=== PATIENT | male | born 1975 | race Caucasian/White ===

== ENCOUNTER 2023-06-10 09:08 | Outpatient (AMB) | payer BC, SELFPAY ==
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
[2023-06-10 09:19] VITALS: BMI 27.8
== END 2023-06-10 10:58 | disposition home or self-care (01) ==
PROVIDERS: Visit Provider Orthopaedic Surgery
DX: S43.432A Superior glenoid labrum lesion of left shoulder, initial encounter (principal)
CPT/HCPCS: 99204

== ENCOUNTER 2023-06-10 10:22 | Outpatient (REF) | payer BC, SELFPAY ==
--- NOTE | ~2023-06-10 | XR_ITS ---
EXAMINATION: XR SHOULDER, LEFT CLINICAL INFORMATION: Reason for Exam M25.519 - Pain in unspecified shoulder COMPARISON: None TECHNIQUE: Three views of the shoulder. FINDINGS: No acute fracture or dislocation. Joint spaces are maintained without significant degenerative change. Soft tissues are unremarkable. XR/XR shoulder LT min 2V IMPRESSION: * No acute osseous abnormality.
== END 2023-06-10 10:23 | disposition home or self-care (01) ==
LOC: HO.HOSX 10:22
PROVIDERS: Visit Provider Orthopaedic Surgery
DX: S43.432A Superior glenoid labrum lesion of left shoulder, initial encounter (principal)
CPT/HCPCS: 73030

== ENCOUNTER 2023-07-07 12:19 | Day surgery (SDC) | payer BC, SELFPAY ==
[2023-07-02 12:52] VITALS: BMI 27.8
[2023-07-02 13:10] VITALS: BMI 27.8
--- NOTE | 2023-07-06 08:57 | HO.ANESPROP2 ---
Documented by User: Kina Larios NP 07/06/23 08:58 HPI - Anesthesia Eval Consult details Narrative: 48yo M for Left Shoulder Arthroscopy flap tear [facility] Active Problems Active Problems: All Active Problems (Updated 07/02/23 @ 13:10 by Ariella Dumas RN) Labral tear of shoulder (Acute) Past Medical History Medical History (Updated 07/02/23 @ 13:10 by Ariella Dumas RN) Hx of heartburn Sleep apnea Psoriasis Surgical History Surgical History (Updated 07/02/23 @ 13:08 by Ariella Dumas RN) Hx of inguinal hernia repair Hx of umbilical hernia repair History of hernia repair Social History Social History (Updated 07/02/23 @ 13:13 by Ariella Dumas RN) Household Members: Spouse Housing: House Are you a primary primary care nurse practitioner to a significant other at home: No Do you presently have visiting nurse or other home services: No Patient Tobacco Use Status: Never used Tobacco Current occupational status: employed Current occupation: [employer] Allergies Allergy/AdvReac Type Severity Reaction Status Date / Time No Known Allergies Allergy Verified 07/02/23 13:13 Home Medications Medication Instructions Recorded Confirmed Last Taken Type albuterol sulfate 90 mcg/actuation 2 puff inhalation Q4-6H PRN 07/02/23 07/02/23 Unknown History aerosol inhaler Shortness Of Breath Or Wheezing deucravacitinib 6 mg tablet 6 mg PO DAILY 07/02/23 07/02/23 Unknown History (Sotyktu) Exam Exam Date and Time: July 06, 2023 0857 Height,Weight and Vital Signs: Height 5 ft 10 in Weight 87.997 kg Assessment and Plan Assessment Anesthesia Assessment: Chart Reviewed Documented by User: Hill Hou MD 07/07/23 17:57 PMFSH Past Medical History Medical History (Updated 07/02/23 @ 13:10 by Ariella Dumas RN) Hx of heartburn Sleep apnea Psoriasis Functional capacity: independent ambulation Family History Family history of problems with anesthesia: No Surgical History Surgical History (Updated 07/02/23 @ 13:08 by Ariella Dumas RN) Hx of inguinal hernia repair Hx of umbilical hernia repair History of hernia repair History of Problems with Anesthesia: No Social History Social History (Updated 07/02/23 @ 13:13 by Ariella Dumas RN) Household Members: Spouse Housing: House Are you a primary primary care nurse practitioner to a significant other at home: No Do you presently have visiting nurse or other home services: No Patient Tobacco Use Status: Never used Tobacco Current occupational status: employed 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 Meds Allergies Allergy/AdvReac Type Severity Reaction Status Date / Time No Known Allergies Allergy Verified 07/02/23 13:13 Home Medications Medication Instructions Recorded Confirmed Last Taken Type albuterol sulfate 90 mcg/actuation 2 puff inhalation Q4-6H PRN 07/02/23 07/02/23 Unknown History aerosol inhaler Shortness Of Breath Or Wheezing deucravacitinib 6 mg tablet 6 mg PO DAILY 07/02/23 07/02/23 Unknown History (Sotyktu) Exam Airway Mallampati Class: IV TM Dist: <=3cm Neck ROM: Full Loose/Missing/Broken Teeth: Yes Assessment and Plan Assessment Anesthesia Assessment: Anesthesia Plan Discussed Final Anesthetic Review Family History of Problems with Anesthesia: No History of Problems with Anesthesia: No NPO: Yes ASA Class: II Final Preanesthetic Review: Meds/Allgs Chart Reviewed, Consent Obtained/Reviewed and Anes Risks/Benef Reviewed Patient Risk: Intermediate Procedure Risk: Intermediate Anesthetic Plan Anesthetic Plan: GA, Regional Block and Agree w/ Assess. and Plan Disposition: Standard PACU
[2023-07-07 12:34] VITALS: BP 128/77; PULSE 73; RESP 18; TEMP 36.6; O2SAT 96
[2023-07-07 12:38] VITALS: BMI 28.1
[2023-07-07] MEDS: Lactated Ringers 1,000 ML 100 ML IVCONT (12:50)
[2023-07-07 14:31] VITALS: BP 116/75; PULSE 77; RESP 24; TEMP 36.3; O2SAT 96
[2023-07-07 14:36] VITALS: BP 112/71; PULSE 85; RESP 18; O2SAT 98
[2023-07-07 14:41] VITALS: BP 112/71; PULSE 84; RESP 20; O2SAT 97
[2023-07-07 14:46] VITALS: BP 115/73; PULSE 75; RESP 20; O2SAT 93
[2023-07-07 14:59] VITALS: BP 116/83; PULSE 81; RESP 20; TEMP 36.3; O2SAT 93
--- NOTE | 2023-07-07 15:16 | P.BOP_ITS ---
Brief Operative Note Date of Service: 07/07/23 Pre-op diagnosis: Left shoulder SLAP tear Post-op diagnosis: same Procedure: Debridement left SLAP tear Implants: none Surgeon: Wesly Weaver MD Anesthesia: GETA and regional Was an Online Project Manager used for this Procedure?: Yes Online Project Manager: Luz Maciel Estimated blood loss (mL): 5 IV fluids (mL): 500 Pathology: none sent Condition: stable Disposition: PACU
--- NOTE | 2023-07-19 11:09 | P.OP_ITS ---
Operative Note Operative Note Date of Service: 07/07/23 Narrative: Date of Service: 07/07/23 Pre-op diagnosis: Left shoulder SLAP tear Post-op diagnosis: same Procedure: Debridement left SLAP tear Implants: none Surgeon: Wesly Weaver MD Anesthesia: GETA and regional Was an Geology Technician used for this Procedure?: Yes Geology Technician: Luz Maciel Estimated blood loss (mL): 5 IV fluids (mL): 500 Pathology: none sent Condition: stable Disposition: PACU Procedure in detail: Patient was brought to the operating room and placed the the beach chair position. All bony prominences were well padded and the limb was prepped and draped in standard sterile fashion. A time out was called to identify proper site, proper procedure and proper surgeon. IV antibiotics per weight were administered. I began by making a posterolateral stab incision with a 15 blade. A blunt trochar was placed into the glenohumeral joint and I insufflated the joint with saline and a 30 degree arthroscope was placed. I established an outside- in anterior portal just distal to the biceps tendon. I then began my inspection of the glenohumeral joint. There was a small SLAP tear ( Type 1). The labral attachment was intact. There were no cartilage changes of the glenoid or humeral head. There was no e/o undersurface RTC tear. The subcapularis was intact. I debrided the loose cartilage of the glenoid/biceps anchor and ablated some anterior interval synovitis. There was no need for biceps tenodesis or labral repair I then removed the trochar and entered the subacromial space. A direct lateral portal was then established and I performed a bursectomy. The cuff was then examined. There was no bursitis and the cuff was pristine. Once I was satisfied with the repair final images were captured and I removed all instrumentation. Portals were closed with nylon. Patient was placed in an abduction sling, e xtubated and brought to the recovery room in stable condition. There were no known complications.
== END 2023-07-07 15:56 | disposition home or self-care (01) ==
LOC: HO.SSS 12:20
PROVIDERS: PCP Internal Medicine Geriatric Medicine; Visit Provider Orthopaedic Surgery
PROC: (CPT 29805; principal; 2023-07-07 15:10)
DX: S43.432A Superior glenoid labrum lesion of left shoulder, initial encounter (principal); V89.2XXA Person injured in unspecified motor-vehicle accident, traffic, initial encounter; Y93.89 Activity, other specified; Y92.9 Unspecified place or not applicable; Y99.8 Other external cause status; G47.33 Obstructive sleep apnea (adult) (pediatric)
CPT/HCPCS: 29822; J0131; J0690; J2250; J2371; J2405

== ENCOUNTER → 2023-07-07 12:19 | Outpatient (BNV) | payer BC, SELFPAY | PROVIDERS: PCP Internal Medicine Geriatric Medicine; Visit Provider Orthopaedic Surgery | DX: S43.432A Superior glenoid labrum lesion of left shoulder, initial encounter (principal) | CPT/HCPCS: 29822 ==

== ENCOUNTER 2023-07-12 13:02 | Outpatient (AMB) | payer BC, SELFPAY ==
--- NOTE | 2023-07-12 13:13 | A.OFFVIS_ITS ---
Intake Vital Signs 07/12/23 13:15 Height 5 ft 10 in Weight 197 lb BMI 28.3 Intake Visit Reasons: PO LT SHLD bic.ten. 07/07/23NE Intake Note: Trung 48 yr old male presents today for his P/O visit for his left shoulder bicep tendon repair from 07/07/23. States he has soreness, states his sling causes more discomfort and uses it as needed only. Allergies No Known Allergies Allergy (Verified 07/12/23 13:14) HPI PO LT SHLD bic.ten. 07/07/23NE HPI Details 48-year-old male who returns to the [facility] today for post-op left shoulder bic ten, 07/07/[address] Weaver. He states he has soreness and discomfort in his shoulder which is aggravated with the use of his sling and is wearing it only as needed. He is doing well otherwise and has no concerns today. 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 No swelling or ecchymosis. NVI. Assessment & Plan Assessment & Plan (1) Labral tear of shoulder: Code(s): S43.439A - Superior glenoid labrum lesion of unspecified shoulder, initial encounter Qualifiers: Encounter type: initial encounter Laterality: left Qualified Code(s): S43.432A - Superior glenoid labrum lesion of left shoulder, initial encounter (2) History of arthroscopy of left shoulder: Code(s): Z98.890 - Other specified postprocedural states Plan Sutures removed today, steri strips applied. He will begin physical therapy on July 15. He will increase activity as tolerated using caution with any type of lifting and he will remain out of work until his next follow-up with Dr. Weaver in 5 weeks, sooner if needed. Patient Instructions: Scribed for Hallie Harmon PA-C, by Puneet Ku emergency medical services coordinator, on 07/12/2023 at 1:15 PM EST. I, Hallie Harmon PA-C, have personally reviewed and agree with the information entered by the scribe. Coding Level of Care Code Global (74289) Diagnoses Tear of left glenoid labrum, initial encounter S43.432A Encounter type: initial encounter Laterality: left History of arthroscopy of left shoulder Z98.890
[2023-07-12 13:15] VITALS: BMI 28.3
== END 2023-07-12 13:42 | disposition home or self-care (01) ==
PROVIDERS: PCP Internal Medicine; Visit Provider Physician Assistant
DX: S43.432A Superior glenoid labrum lesion of left shoulder, initial encounter (principal); Z98.890 Other specified postprocedural states
CPT/HCPCS: 99024

== ENCOUNTER → 2023-07-12 13:02 | Outpatient (BNVA) | payer BC, SELFPAY | PROVIDERS: PCP Internal Medicine; Visit Provider Physician Assistant ==

== ENCOUNTER 2023-08-16 09:30 | Outpatient (AMB) | payer BC, SELFPAY ==
--- NOTE | 2023-08-16 09:41 | A.OFFVIS_ITS ---
Intake Vital Signs 08/16/23 10:01 Height 5 ft 10 in Weight 197 lb BMI 28.3 Intake Visit Reasons: PO-LT SHLD bic.ten. 07/07/23NE Intake Note: Trung is a 48 year old right hand dominant male who presents today for a post operative appointment s/p Left Shoulder Bicep Tendon 07/07/23. He remains out of work at this time. Patient reports that he is doing well, still having some pain. He is working with physical therapy. Allergies No Known Allergies Allergy (Verified 08/16/23 10:02) HPI PO-LT SHLD bic.ten. 07/07/23NE HPI Details Trung is a 48 year old man ~5 weeks S/P left shoulder debridement, without tendon repair. He says he is doing well overall, and has been attending PT. He continues to wear his sling. He has some pain with motion, and says his pain is worse after some PT sessions. He has been out of work since his surgery and wants to know when he can return. 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 [facility] Medical History (Updated 07/12/23 @ 13:54 by Hallie Harmon PA-C) Hx of heartburn Sleep apnea Psoriasis Surgical History (Updated 07/08/23 @ 09:57 by Luz Maciel PA-C) Hx of inguinal hernia repair Hx of umbilical hernia repair History of hernia repair Social History Household Members: Spouse Housing: House Are you a primary home care manager to a significant other at home: No Do you presently have visiting nurse or other home services: No Patient Tobacco Use Status: Never used Tobacco Use of substances other than those prescribed or required for medical reasons: No Current occupational status: employed 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 Review of Systems Const All systems reviewed & are unremarkable except as noted in HPI and below Physical Exam Vital Signs: BMI result Body Mass Index 28.3 Const General: no acute distress, alert and awake Orientation/consciousness: patient oriented x3 HEENT Head: Yes normocephalic and Yes atraumatic Eyes EOM: EOMs intact bilaterally Resp Effort & Inspection: normal respiratory effort and able to speak in complete sentences Cardio Jugular venous distension: no JVD Skin General skin exam: turgor normal Rashes: no rashes Neuro General: patient oriented x3 Extrem Other: Left Shoulder: Portals C/D/I 30 degrees ER 90 degreed AB splinting with left shoulder girdle Psych Appearance: grossly normal Affect: normal affect Attitude: cooperative Assessment & Plan Assessment & Plan (1) History of arthroscopy of left shoulder: Code(s): Z98.890 - Other specified postprocedural states Plan: This is a 48 year old man S/P left shoulder debridement, DOS: 07/07/23. He is doing well overall, and has been attending PT & wearing his sling. He will limit or avoid any overhead or heavy lifting activities at this time, and focus on per i-scapular strengthening exercises. He will continue with PT and discontinue his sling. He was given a note for work saying he will remain out of work until at least his next appointment. He will follow up in 6 weeks. (2) Labral tear of shoulder: Code(s): S43.439A - Superior glenoid labrum lesion of unspecified shoulder, initial encounter Qualifiers: Encounter type: initial encounter Laterality: left Qualified Code(s): S43.432A - Superior glenoid labrum lesion of left shoulder, initial encounter Plan Scribed for Wesly Weaver MD by Jeffery Perez, medical device sales representative, on 08/16/23 at 10:15 AM, EST. Coding Level of Care Code Global (62977) Diagnoses History of arthroscopy of left shoulder Z98.890 Tear of left glenoid labrum, initial encounter S43.432A Encounter type: initial encounter Laterality: left
[2023-08-16 10:01] VITALS: BMI 28.3
== END 2023-08-16 10:17 | disposition home or self-care (01) ==
PROVIDERS: PCP Internal Medicine; Visit Provider Orthopaedic Surgery
DX: Z98.890 Other specified postprocedural states (principal); S43.432A Superior glenoid labrum lesion of left shoulder, initial encounter
CPT/HCPCS: 99024

== ENCOUNTER → 2023-08-16 09:30 | Outpatient (BNVA) | payer BC, SELFPAY | PROVIDERS: PCP Internal Medicine; Visit Provider Orthopaedic Surgery ==

== ENCOUNTER 2023-09-21 08:00 | Outpatient (RCR) | payer BC, SELFPAY ==
--- NOTE | 2023-07-30 14:31 | MHC.PT.EP ---
[facility] [place] Office [place] Office [place] Office [address] Randall Begum [address] [phone] F: [phone] F: [phone] F: [phone] F: [phone] Physical Therapy Plan of Care Date of Evaluation: 07/30/23 Date of Surgery: 07/07/23 Diagnosis: S/P SLAP REPAIR 07/07/23 (KP) Assessment: PRESENTS P/O WEEK 3 FOR ORTHOPEDIC FOLLOW UP AND PT EVALUATION. UPON EXAM HE DEMONSTRATES THE EXPECTED IMPAIRMENTS OF DECREASED ROM, DECREASED STRENGTH, ALTERED POSTURE AND POSITIONING, INCREASED UPPER TRAP GUARDING, AND INCREASED PAIN AND EDEMA. FUNCTIONAL LIMITATIONS INCLUDE DECREASED ABILITY TO PERFORM HOMEMAKING AND SELF-CARE TASKS, DECREASED ABILITY TO PERFORM PUSHING, PULLING, LIFTING AND REACHING. INABILITY TO DRIVE AND PERFORM WORK TASKS, DECREASED PARTICIPATION IN COMMUNITY AND RECREATIONAL ACTIVITIES AND DISRUPTED SLEEP. THE PT IS A GOOD CANDIDATE FOR SKILLED PT DUE TO AGE, POTENTIAL REMEDIATION OF IMPAIRMENTS, TYPICAL DISEASE/CONDITION PROGRESSION AND PROGNOSIS, COMORBIDITIES, AND MOTIVATION. PT WOULD BENEFIT FROM TAILORED PROGRAM OF THERAPEUTIC ACTIVITIES, FUNCTIONAL TRAINING, POSTURAL EDUCATION, NEUROMUSCULAR RE-EDUCATION, AND MODALITIES NEEDED. Frequency and Duration: The patient will be seen 2 X WEEK FOR 4 WEEKS Short Term Goals: INITIATE HEP AND PROMOTE SELF MANAGEMENT OF SYMPTOMS [employer] Analyst Goals: FULL, PAIN FREE ROM FULL UE STRENGTH, PAIN FREE TO PERFORM COMPUTER AND WORK TASKS WITHOUT RESTRICTION AND PAIN NO GREATER THAN 2/[address] OBJECT AT MINIMUM OF 5# INTO CABINET AT SHOULDER HEIGHT Treatment Plan: Modalities to reduce pain, spasms and effusion. Manual therapy to restore motion and function. Therapeutic exercise to improve strength and flexibility. Neuromuscular re-education for posture and balance. Therapeutic activities to return to functional activities of daily living. Electronically signed by: SIVA LINTON PT DPT Please sign and return to therapist. Thank you for your referral.
== END 2023-11-08 09:12 | disposition home or self-care (01) ==
LOC: HO.PT 08:00
PROVIDERS: Absent Provider Physician Assistant; PCP Internal Medicine; Visit Provider Physician Assistant
DX: Z98.890 Other specified postprocedural states (principal)
CPT/HCPCS: 97110; 97140; 97161

== ENCOUNTER 2023-09-27 09:00 | Outpatient (AMB) | payer BC, SELFPAY ==
--- NOTE | 2023-09-27 09:03 | MHC.OFFVIS ---
Intake Vital Signs 09/27/23 09:04 Height 5 ft 10 in Weight 197 lb BMI 28.3 Intake Visit Reasons: PO-LT SHLD bic.ten. 07/07/23NE Intake Note: Trung is a 48 year old right hand dominant male who presents today for a post operative appointment s/p Left Shoulder Bicep Tendon 07/07/23. He remains out of work at this time. Patient reports that he is having continued, possibly worsening pain, pain increases with reaching and he has some clicking with ROM Allergies No Known Allergies Allergy (Verified 09/27/23 09:08) HPI PO-LT SHLD bic.ten. 07/07/23NE HPI Details Trung is a 48 year old man ~3 months S/P left shoulder debridement, without tendon repair. He reports having pain in his shoulder, which he feels may be getting worse since his last appointment. His pain is felt with use of his arm, and increases with reaching motions, as well as at night. He feels a clicking sensation in his shoulder with motion, and says at time the pain radiates up into his neck. He also says he has some occasional numbness in his fingertips as well, which is new for him. He has been attending PT. He has been out of work since his surgery. 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 Review of Systems Const All systems reviewed & are unremarkable except as noted in HPI and below Physical Exam Vital Signs: BMI result Body Mass Index 28.3 Const General: no acute distress, alert and awake Orientation/consciousness: patient oriented x3 HEENT Head: Yes normocephalic and Yes atraumatic Eyes EOM: EOMs intact bilaterally Resp Effort & Inspection: normal respiratory effort and able to speak in complete sentences Cardio Jugular venous distension: no JVD Skin General skin exam: turgor normal Rashes: no rashes Neuro General: patient oriented x3 Extrem Other: + spurlings on the left 4/5 biceps +hawkin's/Neer Psych Appearance: grossly normal Affect: normal affect Attitude: cooperative Assessment & Plan Assessment & Plan (1) History of arthroscopy of left shoulder: Code(s): Z98.890 - Other specified postprocedural states Plan: Trung was doing well but has with under worsening again with numbness and tingling in his arm. I recommend an MRI to assess cervical spine given his exam and symptoms. (2) Arm numbness left: Code(s): R20.0 - Anesthesia of skin Plan: Trung was doing well but has with under worsening again with numbness and tingling in his arm. I recommend an MRI to assess cervical spine given his exam and symptoms. He is not cleared for work. He will follow up after MRI. Plan Scribed for Wesly Weaver MD by Jeffery Perez, medical office manager, on at 9:35 AM, EST. Orders: Orders MR cervical spine wo con Today R20.0 - Anesthesia of skin Coding Level of Care Code Est Pt Level 4 (68944) Diagnoses History of arthroscopy of left shoulder Z98.890 Arm numbness left R20.0
[2023-09-27 09:04] VITALS: BMI 28.3
== END 2023-09-27 10:09 | disposition home or self-care (01) ==
PROVIDERS: PCP Internal Medicine; Visit Provider Orthopaedic Surgery
DX: S43.432D Superior glenoid labrum lesion of left shoulder, subsequent encounter (principal); Z98.890 Other specified postprocedural states; R20.0 Anesthesia of skin
CPT/HCPCS: 99024

== ENCOUNTER → 2023-09-27 09:00 | Outpatient (BNVA) | payer BC, SELFPAY | PROVIDERS: PCP Internal Medicine; Visit Provider Orthopaedic Surgery ==

== ENCOUNTER 2023-10-29 13:42 | Outpatient (REF) | payer BC, SELFPAY ==
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
== END 2023-10-29 13:43 | disposition home or self-care (01) ==
LOC: HO.MRI 13:42
PROVIDERS: PCP Internal Medicine; Visit Provider Orthopaedic Surgery
DX: R20.0 Anesthesia of skin (principal); M79.602 Pain in left arm
CPT/HCPCS: 72141

== ENCOUNTER 2023-11-12 09:55 | Outpatient (AMB) | payer BC, SELFPAY ==
--- NOTE | 2023-11-12 09:58 | MHC.OFFVIS ---
Intake Intake Visit Reasons: ov-MRI Cervical Spine review Intake Note: Trung is a 48 year old right hand dominant male who presents today for a post operative appointment s/p Left Shoulder Bicep Tendon 07/07/23. At his last visit he expressed concerns of numbness and tingling of the arm, [place] [facility] [place]. Allergies No Known Allergies Allergy (Verified 09/27/23 09:08) HPI ov-MRI Cervical Spine review HPI Details Trung is a 48 year old man ~4 months S/P left shoulder debridement, without tendon repair. He is here for a C-spine MRI review concerning his left arm pain & fingertip numbness, which began in the last few weeks. He continues to have pain & numbness, and has been working with PT. [facility] Medical History (Updated 11/14/23 @ 09:33 by Wesly Weaver MD) Hx of heartburn Sleep apnea Psoriasis Surgical History (Updated 09/27/23 @ 09:53 by Ileana Carrillo CMA) History of arthroscopy of left shoulder (11/16/22) Hx of inguinal hernia repair Hx of umbilical hernia repair History of hernia repair Social History Household Members: Spouse Housing: House Are you a primary career transition specialist to a significant other at home: No Do you presently have visiting nurse or other home services: No Patient Tobacco Use Status: Never used Tobacco Current occupational status: employed 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 Review of Systems Const All systems reviewed & are unremarkable except as noted in HPI and below Physical Exam Const General: no acute distress, alert and awake Orientation/consciousness: patient oriented x3 HEENT Head: Yes normocephalic and Yes atraumatic Eyes EOM: EOMs intact bilaterally Resp Effort & Inspection: normal respiratory effort and able to speak in complete sentences Cardio Jugular venous distension: no JVD Skin General skin exam: turgor normal Rashes: no rashes Neuro General: patient oriented x3 Extrem Other: TTP over ACJ and anterior bicipital groove + O'zora's neg EC Psych Appearance: grossly normal Affect: normal affect Attitude: cooperative Office Procedures Joint Injection/Drain Joint Injection/Drain Details: Injected 1 mL of Decadron and 1 mL 1% lidocaine and 1 mL of 0.25% Marcaine. Site was prepped using aseptic technique. Patient tolerated the procedure well. Primary Site: other (left ACJ) Approach Used: other (superior) Coding - Small Joint Procedure code (CPT) selection complete Results Reviewed Results Reviewed: I personally reviewed the MR images. Very mild spondylitic changes. No focal disc protrusion or central canal stenosis. Mild rightward curvature of the cervical spine. Mild right foraminal narrowing due to uncovertebral joint spurring at the C3-C4 level. Assessment & Plan Assessment & Plan (1) AC joint pain: Code(s): M25.519 - Pain in unspecified shoulder Plan: Injected his ACJ with mild relief He is frustrated and I cannot find an etiology of his pain. His arthroscopic surgery did not reveal a significant labral tear and was largely unimpressive. His ACJ does not appear deranged on MR and his biceps was intact intra-operatively and appeared normal. His neck MRI is not helpful. I would like to see him back in 2 weeks to see if AC injection was helpful. He may remain on restricted duty Plan Prepared for Wesly Weaver MD by Jeffery Perez, medical lab tech instructor, on 11/12/23 at 10:01 AM, EST. Coding Level of Care Code Est Pt Level 3 (92457) Diagnoses AC joint pain M25.519 CPT Codes Coding - - Small joint: - Small Joint ([id number])
== END 2023-11-12 11:19 | disposition home or self-care (01) ==
PROVIDERS: PCP Internal Medicine; Visit Provider Orthopaedic Surgery
DX: M25.512 Pain in left shoulder (principal)
CPT/HCPCS: 20605; 99213

== ENCOUNTER → 2023-11-12 09:55 | Outpatient (BNVA) | payer BC, SELFPAY | PROVIDERS: PCP Internal Medicine; Visit Provider Orthopaedic Surgery | DX: M25.512 Pain in left shoulder (principal) | CPT/HCPCS: 20605; J0665; J1100 ==

== ENCOUNTER 2023-11-26 10:06 | Outpatient (AMB) | payer BC, SELFPAY ==
[2023-11-26 10:09] VITALS: BMI 28.3
--- NOTE | 2023-11-26 10:09 | A.OFFVIS_ITS ---
Intake Vital Signs 11/26/23 10:09 Height 5 ft 10 in Weight 197 lb BMI 28.3 Intake Visit Reasons: OV - Left AC Joint Pain Intake Note: Trung is a 48 year old right hand dominant male who presents today for a post operative appointment s/p Left Shoulder SLAP Repair 07/07/23. Last seen on 11/12/23 where the AC Joint was injected.Patient reports that this injection was not helpful. Allergies No Known Allergies Allergy (Verified 09/27/23 09:08) HPI OV - Left AC Joint Pain HPI Details Trung is a 48 year old man ~5 months S/P left shoulder debridement, without tendon repair. He presents for a follow-up S/P left ACJ injection, done on 11/12/23 He continues to have pain & numbness, and says the injection was not helpful. He is frustrated that he continues to have pain, without relief. 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 Review of Systems Const All systems reviewed & are unremarkable except as noted in HPI and below Physical Exam Vital Signs: BMI result Body Mass Index 28.3 Const General: no acute distress, alert and awake Orientation/consciousness: patient oriented x3 HEENT Head: Yes normocephalic and Yes atraumatic Eyes EOM: EOMs intact bilaterally Resp Effort & Inspection: normal respiratory effort and able to speak in complete sentences Cardio Jugular venous distension: no JVD Skin General skin exam: turgor normal Rashes: no rashes Neuro General: patient oriented x3 Extrem Other: 30/90/130/L5 +[place]'s Painful ec Psych Appearance: grossly normal Affect: normal affect Attitude: cooperative Assessment & Plan Assessment & Plan (1) Internal derangement of left shoulder: Code(s): M24.812 - Other specific joint derangements of left shoulder, not elsewhere classified Plan: 48 yo old with ongoing left shoulder pain. He underwent a SLAP debridement and his should joint looked normal. His cervical spine MRI was unremarkable and he did not benefit from an AC joint injection. I discussed my findings with Jax. He continues to be very uncomfortable and I do not have a good diagnosis. I ordered an MRI with Contrast and with a ALVARADO sequence. Hopefully this will give us some additional information. Plan Prepared for Wesly Weaver MD by Jeffery Perez, medical authorization specialist, on 11/26/23 at 10:16 AM, EST. Orders: Orders FL arthrogram shoulder LT Today M24.812 - Other specific joint derangements of left shoulder, not elsewhere classified MR shoulder LT w con Today M24.812 - Other specific joint derangements of left shoulder, not elsewhere classified Coding Level of Care Code Est Pt Level 4 (35892) Diagnoses Internal derangement of left shoulder M24.812
== END 2023-11-26 10:41 | disposition home or self-care (01) ==
PROVIDERS: PCP Internal Medicine; Visit Provider Orthopaedic Surgery
DX: M24.812 Other specific joint derangements of left shoulder, not elsewhere classified (principal)
CPT/HCPCS: 99214

== ENCOUNTER → 2023-11-26 10:06 | Outpatient (BNVA) | payer BC, SELFPAY | PROVIDERS: PCP Internal Medicine; Visit Provider Orthopaedic Surgery ==

== ENCOUNTER 2024-03-03 12:58 | Outpatient (REF) | payer BC, SELFPAY ==
--- NOTE | ~2024-03-03 | MR_ITS ---
EXAMINATION: MR SHOULDER WITH CONTRAST, LEFT CLINICAL INFORMATION: Derangement of left shoulder. Patient reports pain and decreased range of motion. COMPARISON: None available. TECHNIQUE: MRI of the shoulder was performed following the intra-articular administration of a dilute gadolinium-containing solution (arthrogram) on a high-field scanner. FINDINGS: The exam is partially limited by image-degrading motion artifact. ROTATOR CUFF: Intact. No muscle atrophy or fatty infiltration. BICEPS: Normal. CORACOACROMIAL ARCH: The undersurface of the acromion is curved with no subacromial spur. The acromioclavicular joint is normal. LABRUM/CAPSULE: There is a paralabral cyst abutting the posterior inferior labrum and deep to the capsule of the labrum appears grossly intact. No contrast extension into the labrum. The remaining portions of the labrum are intact. GLENOHUMERAL JOINT/MARROW: Normal. MR/MR shoulder LT w con IMPRESSION: Paralabral cyst abutting the inferior posterior labrum commonly associated with labral tear raising the question of inconspicuous labral tear. No definite tear visualized.
--- NOTE | ~2024-03-03 | FL_ITS ---
LEFT SHOULDER FLUOROSCOPIC GUIDED ARTHROGRAM INDICATIONS: Left shoulder pain. Intra-articular gadolinium injection is needed prior to MRI. PROCEDURE: Risks and benefits and possible complications were discussed with the patient and the consent form was signed. The patient was placed supine on the fluoroscopy table. The left shoulder was prepped and draped in normal sterile fashion. 1% buffered lidocaine was used for anesthesia. A 22-gauge spinal needle was used to access the shoulder joint. Intra-articular position of the needle within the shoulder joint was verified using 3 cc of Omnipaque 300. A total of 10 mL of gadolinium/saline (1:200) contrast mixture was then injected into the shoulder joint. The needle was then removed and a Band-Aid was applied to the injection site. The patient tolerated the procedure well and was sent to MRI. There were no immediate complications. FL/FL arthrogram shoulder LT IMPRESSION: Successful fluoroscopic guided intra-articular instillation of dilute gadolinium into the left shoulder joint. Patient will undergo subsequent left shoulder MRI. The procedure was performed by lori Degroot PA-C, and directly supervised by Dr. Ahumada.
== END 2024-03-03 12:59 | disposition home or self-care (01) ==
LOC: HO.XRAY 12:58
PROVIDERS: PCP Internal Medicine; Visit Provider Orthopaedic Surgery
DX: M24.812 Other specific joint derangements of left shoulder, not elsewhere classified (principal)
CPT/HCPCS: 23350; 73040; 73222

== ENCOUNTER → 2024-03-03 13:02 | Outpatient (BNV) | payer BC, SELFPAY | PROVIDERS: PCP Internal Medicine; Visit Provider Physician Assistant Surgical | DX: M24.812 Other specific joint derangements of left shoulder, not elsewhere classified (principal) | CPT/HCPCS: 23350; 73040 ==

== ENCOUNTER 2024-04-13 14:12 | Outpatient (AMB) | payer BC, SELFPAY ==
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
== END 2024-04-13 16:08 | disposition home or self-care (01) ==
PROVIDERS: PCP Internal Medicine; Visit Provider Orthopaedic Surgery
DX: S43.432A Superior glenoid labrum lesion of left shoulder, initial encounter (principal)
CPT/HCPCS: 99214

== ENCOUNTER → 2024-04-13 14:12 | Outpatient (BNVA) | payer BC, SELFPAY | PROVIDERS: PCP Internal Medicine; Visit Provider Orthopaedic Surgery ==

== ENCOUNTER 2024-06-22 11:24 | Outpatient (AMB) | payer BC, SELFPAY ==
--- NOTE | 2024-06-22 11:37 | MHC.OFFVIS ---
Intake Visit Reasons: Preop LT shoulder /bicep/SLAP 06/28/24 NE Intake Note: Trung is a 49 year old male who presents today for a pre op appointment for his LT shoulder /bicep/SLAP 06/28/24 NE. Allergies No Known Allergies Allergy (Verified 06/22/24 11:44) HPI HPI Preop LT shoulder /bicep/SLAP 06/28/24 NE: Details: 49-year-old right hand dominant male who presents in the office today for his preoperative history and physical exam prior to a left shoulder arthroscopy with possible biceps tenodesis and possible RTC repair to be performed on 06/28/[address] Wesly Weaver.? ? Patient has no known allergy history.? ? Patient is currently taking, as follows:? -Albuterol sulfate 90 mcg/actuation 2 puffs inhalation Q4-6H PRN? -Deucravacitinib 6 mg PO daily? -Oxycodone-acetaminophen 5-325 mg PO Q4-6H PRN. ? ? Patient has a medical history, as follows:? -Heartburn? -Sleep apnea; not using CPAP? -Psoriasis? ? Patient has a surgical history, as follows:? -Hx of left shoulder arthroscopy with biceps tenotomy 11/16/22 Dr. Weaver? -Hx of inguinal hernia repair? -Hx of umbilical hernia repair? ? Patient has a social history, as follows:? 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 Review of Systems Const All systems reviewed & are unremarkable except as noted in HPI and below Physical Exam Const General: cooperative, healthy appearing, comfortable, no acute distress, well developed, alert and awake Orientation/consciousness: patient oriented x3 HEENT Head: Yes normal to inspection, Yes normocephalic and Yes atraumatic Eyes General: appearance normal, both eyes and all related structures Alignment and Position: alignment normal Conjunctivae: conjunctivae normal EOM: EOMs intact bilaterally Neck Neck: Yes normal visual inspection and Yes no lymphadenopathy Resp Other: No rerpiratory distress Effort & Inspection: normal respiratory effort and able to speak in complete sentences Cardio Other: Palpable radial pulse with no appreciable rythmic abnormalities Rate: regular rate Peripheral pulses: Peripheral pulses 2+ throughout GI Other: No abdominal distension Inspection: Yes normal to inspection Palpation (GI): Soft to palpation Back/Spine/Pelvis Cervical Spine: normal cervical lordosis and cervical ROM normal Skin General skin exam: no rashes or lesions noted Neuro General: patient oriented x3 Extrem Other: Shoulder: Visual inspection: no atrophy of supra or infraspinatus TTP: global and non specific ROM: 35 (50 on right) Hawkin's: neg Neer: neg Empty can: painful but neg Lag: neg Lift off: Unable to o'Deep's: positive Crank: [place]ivie Psych Mental Status: mental status grossly normal Assessment & Plan Assessment & Plan (1) SLAP tear of shoulder: Code(s): S43.439A - Superior glenoid labrum lesion of unspecified shoulder, initial encounter Category: Medical Plan Mr. Bryan is a 49-year-old right hand dominant male who presents in the office today for his preoperative history and physical exam prior to a left shoulder arthroscopy with possible biceps tenodesis and possible RTC repair to be performed on 06/28/[address] Wesly Weaver.? ? Patient has no known allergy history.? ? Patient is currently taking, as follows:? -Albuterol sulfate 90 mcg/actuation 2 puffs inhalation Q4-6H PRN? -Deucravacitinib 6 mg PO daily? -Oxycodone-acetaminophen 5-325 mg PO Q4-6H PRN. ? ? Patient has a medical history, as follows:? -Heartburn? -Sleep apnea; not using CPAP? -Psoriasis? ? Patient has a surgical history, as follows:? -Hx of left shoulder arthroscopy with biceps tenotomy 11/16/22 Dr. Weaver? -Hx of inguinal hernia repair? -Hx of umbilical hernia repair? ? Patient has a social history, as follows:? 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 ? ? I discussed in detail the procedure and what to expect pre and post operatively. We discussed the risks, benefits, alternatives to the surgery and the rehabilitation course. The risks include infection, bleeding, nerve injury, ongoing pain, swelling, and stiffness, perioperative risk of injury to bones and soft tissues, and blood clots.?? ? I have answered all questions and with their understanding they have consented to move forward with a left shoulder arthroscopy with possible biceps tenodesis and possible RTC repair to be performed on 06/28/[address] Wesly Weaver.? ? Post operative medications were sent to the pharmacy, oxycodone-acetaminophen 5-325 mg (Percocet) PO Q4-6H PRN, quantity 42 tabs for 7 days and morphine ER 15 mg (MS Contin) PO Q12H PRN, quantity 6 tabs for 3 days, while in the office today. The patient was instructed that he should obtain the prescription prior to surgery but should not consume until after the procedure; as these should only be taken for post operative pain management. Should the patient take these medications before surgery, a refill will not be sent to the pharmacy until their scheduled refill date.? ? Follow-up will be at the post operative appointment on 07/06/24, or sooner if needed.? Medications: New oxycodone-acetaminophen 5-325 mg Partial Fill upon patient request. 1 tab PO Q4-6H PRN 42 tabs 0RF pain 7 days morphine ER (MS Contin) Partial Fill upon patient request. 15 mg PO Q12H 6 tabs 0RF 3 days Patient Instructions: Scribed by Tamia Barba medical scientific officer, for Luz Maciel PA-C on 06/22/2024 at 12:09 pm, EST.? Coding Level of Care Code Global (57339) Diagnoses SLAP tear of shoulder S43.439A
== END 2024-06-22 11:51 | disposition home or self-care (01) ==
LOC: HO.HOS 11:24
PROVIDERS: PCP Internal Medicine; Visit Provider Physician Assistant
DX: S43.439A Superior glenoid labrum lesion of unspecified shoulder, initial encounter (principal)
CPT/HCPCS: 99024

== ENCOUNTER → 2024-06-22 11:24 | Outpatient (BNVA) | payer BC, SELFPAY | PROVIDERS: PCP Internal Medicine; Visit Provider Physician Assistant ==

== ENCOUNTER 2024-06-28 08:13 | Day surgery (SDC) | payer BC, SELFPAY ==
[2024-06-23 10:25] VITALS: BMI 28.3
[2024-06-23 10:44] VITALS: BMI 28.3
--- NOTE | 2024-06-23 13:45 | P.CONAN_ITS ---
Documented by User: Kina Larios NP 06/23/24 13:46 HPI - Anesthesia Eval Consult details Narrative: 49yo M for Left Bicep Tendon Repair - possible rotator cuff repair, possible labral repair s/p shoulder scope 06/2023 with GA-ETT 7.5 PMFSH Active Problems Active Problems: All Active Problems SLAP tear of shoulder (Acute) Internal derangement of left shoulder (Acute) AC joint pain (Acute) AC joint arthropathy (Acute) Arm numbness left (Acute) Labral tear of shoulder (Acute) History of arthroscopy of left shoulder (Acute 11/16/22) Past Medical History Medical History Breathing difficulty Heartburn Sleep apnea Psoriasis Family History Family history of problems with anesthesia: No Surgical History Surgical History History of arthroscopy of left shoulder (11/16/22) Hx of inguinal hernia repair Hx of umbilical hernia repair History of hernia repair History of Problems with Anesthesia: No Social History Social History Household Members: Spouse Housing: House Are you a primary personal carer to a significant other at home: No Do you presently have visiting nurse or other home services: No Patient Tobacco Use Status: Never used Tobacco Use of substances other than those prescribed or required for medical reasons: No Have you been hit, kicked, punched, or otherwise hurt by someone within the past year? If so, by whom?: No Are you DNR?: No Advance Directives: No (spouse is primary contact) Advance Directives Information Provided: Yes Advance Directives on File: No Recently lost weight without trying: No Eating poorly because of decreased appetite: No Nutrition Risks: No Nutritional Risk Poor oral hygiene: No Current occupational status: employed Current occupation: [employer] Allergies Allergy/AdvReac Type Severity Reaction Status Date / Time No Known Allergies Allergy Verified 06/28/24 09:44 Home Medications ?Medication ?Instructions ?Recorded ?Confirmed ?Last Taken ?Type albuterol sulfate 90 mcg/actuation 2 puff inhalation Q4-6H PRN 07/02/23 06/23/24 Unknown History aerosol inhaler Shortness Of Breath Or Wheezing deucravacitinib 6 mg tablet 6 mg PO DAILY 07/02/23 06/23/24 Unknown History ([facility]) fluticasone propionate 115 2 puff inhalation BID 06/23/24 06/23/24 Unknown History mcg-salmeterol 21 mcg/actuation HFA inhaler (Advair HFA) Exam Height,Weight and Vital Signs: Height 5 ft 10 in Weight 89.358 kg Assessment and Plan Assessment Anesthesia Assessment: Chart Reviewed Final Anesthetic Review Family History of Problems with Anesthesia: No History of Problems with Anesthesia: No Documented by User: Mayra Byren MD 06/28/24 10:12 [facility] Past Medical History Medical History Breathing difficulty Heartburn Sleep apnea Psoriasis Surgical History Surgical History History of arthroscopy of left shoulder (11/16/22) Hx of inguinal hernia repair Hx of umbilical hernia repair History of hernia repair Social History Social History Household Members: Spouse Housing: House Are you a primary personal carer to a significant other at home: No Do you presently have visiting nurse or other home services: No Patient Tobacco Use Status: Never used Tobacco Use of substances other than those prescribed or required for medical reasons: No Have you been hit, kicked, punched, or otherwise hurt by someone within the past year? If so, by whom?: No Are you DNR?: No Advance Directives: No (spouse is primary contact) Advance Directives Information Provided: Yes Advance Directives on File: No Recently lost weight without trying: No Eating poorly because of decreased appetite: No Nutrition Risks: No Nutritional Risk Poor oral hygiene: No Current occupational status: employed Current occupation: [employer] Meds Allergies Allergy/AdvReac Type Severity Reaction Status Date / Time No Known Allergies Allergy Verified 06/28/24 09:44 Home Medications ?Medication ?Instructions ?Recorded ?Confirmed ?Last Taken ?Type albuterol sulfate 90 mcg/actuation 2 puff inhalation Q4-6H PRN 07/02/23 06/23/24 Unknown History aerosol inhaler Shortness Of Breath Or Wheezing deucravacitinib 6 mg tablet 6 mg PO DAILY 07/02/23 06/23/24 Unknown History ([facility]) fluticasone propionate 115 2 puff inhalation BID 06/23/24 06/23/24 Unknown History mcg-salmeterol 21 mcg/actuation HFA inhaler (Advair HFA) Exam Airway Mallampati Class: II TM Dist: >3cm Neck ROM: Full Heart: rrr Lungs: cta Assessment and Plan Assessment Anesthesia Assessment: Anesthesia Plan Discussed Final Anesthetic Review NPO: Yes ASA Class: II Final Preanesthetic Review: No Changes in Pt Med Stat, Meds/Allgs Chart Reviewed, Consent Obtained/Reviewed and Anes Risks/Benef Reviewed Patient Risk: Low Procedure Risk: Intermediate Anesthetic Plan Anesthetic Plan: GA and Regional Block Disposition: Standard PACU
[2024-06-28] VITALS (13 sets, daily range): BP systolic 102–131; BP diastolic 60–74; PULSE 57–88; RESP 10–18; TEMP 36.1–36.6; O2SAT 93–98; BMI 27.7
--- NOTE | 2024-06-28 09:30 | MHC.SHP ---
Pre-Procedural Eval Section A - 24 Hr Update-Section A only Date of Service: 06/28/24 The patient is an INPATIENT: No Changes since office visit: No Cold of Flu in the past 2 weeks, No New Medical Problems, No Changes in Medication and No Patient answered all questions The patient has been examined within 24 hours of the surgical procedure. The History & Physical has been completed within 30 days and I have reviewed it.: Yes Section B - Complete if H&P > 30 days Chief Complaint: Superior glenoid labrum lesion of left shoulder, i Allergies: Allergies Allergy/AdvReac Type Severity Reaction Status Date / Time No Known Allergies Allergy Verified 06/22/24 11:44 Plan I have reviewed the history and physical and performed a pertinent physical examination on my patient. No changes have occurred unless specified. Time Spent With Patient Time: Total time managing care of this patient today ____ minutes.
[2024-06-28] MEDS: Lactated Ringers 1,000 ML 100 ML IVCONT (09:42)
--- NOTE | 2024-06-28 11:04 | PC.NURSE ---
IV in right hand, documented in error.
--- NOTE | 2024-06-28 12:07 | P.BOP_ITS ---
Brief Operative Note Date of Service: 06/28/24 Pre-op diagnosis: Left biceps tendonitis and labral debridement Post-op diagnosis: same Procedure: Arthroscopic labral debridement and sub pectoral biceps tenodesis Implants: Arthres biceps tenodesis button and interference screw Surgeon: Wesly Weaver MD Anesthesia: GETA and regional Was an Trim Mounter used for this Procedure?: Yes Trim Mounter: Hallie Harmon Estimated blood loss (mL): 50 IV fluids (mL): 1,000 Pathology: none sent Condition: stable Disposition: PACU
[2024-06-28] MEDS: fentaNYL citrate/PF 100 MCG/2 ML VIAL 50 MCG IVPUSH ×3 (12:55→13:20)
--- NOTE | 2024-07-18 07:36 | W.PM.OPN ---
Operative Note Operative Note Date of Service: 06/28/24 Narrative: Date of Service: 06/28/24 Pre-op diagnosis: Left biceps tendonitis and labral debridement Post-op diagnosis: same Procedure: Arthroscopic labral debridement and sub pectoral biceps tenodesis Implants: Arthres biceps tenodesis button and interference screw Surgeon: Wesly Weaver MD Anesthesia: GETA and regional Was an Manager Database Administration used for this Procedure?: Yes Manager Database Administration: Hallie Harmon Estimated blood loss (mL): 50 IV fluids (mL): 1,000 Pathology: none sent Condition: stable Disposition: PACU Procedure in detail: Patient was brought to the operating room and placed the the beach chair position. All bony prominences were well padded and the limb was prepped and draped in standard sterile fashion. A time out was called to identify proper site, proper procedure and proper surgeon. IV antibiotics per weight were administered. I began by making a posterolateral stab incision with a 15 blade. A blunt trochar was placed into the glenohumeral joint and I insufflated the joint with saline and a 30 degree arthroscope was placed. I established an outside- in anterior portal just distal to the biceps tendon. I then began my inspection of the glenohumeral joint. There was a degenerative tear at the biceps anchor ( Type 2). There were minimal cartilage changes at the inferior glenoid without humeral head changes. There was a a nl appearance of the RTC undersurface. The subcapularis was intact. I debrided the loose cartilage of the glenoid and the degenerative labral tearing and performed a biceps tenotomy. The biceps was tagged with a suture using a scorpion prior to tenotomy. I then removed the arthroscopic instrumentation. I made an incision over Genny's lines of the axilla just medial to the bicipital groove at the inferior border of the pectoralis muscle. I then digitally dissected down to the bicipital groove. I palpated the biceps with my finger and then placed a 90 degree clamp behind this and retrieved the biceps through the incision. I then shortened the biceps with an knife and whipstitched a Arthrex biceps button through the proximal biceps. Once this was done I drilled a Beath pin bicortically through the proximal humerus just distal to the bicipital groove. I then over-drilled with a 7.5 Reamer through 1 cortex. I then dunked the button through both cortices and flipped the button. I then dunked the tendon into the medullary canal of the bone. I had a excellent purchase and the tendon was not on tension. I then placed a 7.5 interference screw unicortically over the suture. I took the elbow through range of motion I was satisfied with the tension instability. The hardware was not prominent. I then removed all instrumentation irrigated copiously. The subpectoral incision was closed with absorbable suture and then a running V lock with skin glue and Steri-Strips. The arthroscopic portals were closed with nylon. Patient was placed in an abduction sling, extubated and brought to the recovery room in stable condition. There were no known complications.
== END 2024-06-28 14:45 | disposition home or self-care (01) ==
PROVIDERS: PCP Internal Medicine; Visit Provider Orthopaedic Surgery
PROC: (CPT 29805; principal; 2024-06-28 10:40)
DX: S43.432A Superior glenoid labrum lesion of left shoulder, initial encounter (principal); M75.22 Bicipital tendinitis, left shoulder; Z98.890 Other specified postprocedural states; L40.9 Psoriasis, unspecified; G47.33 Obstructive sleep apnea (adult) (pediatric); Z79.899 Other long term (current) drug therapy; X58.XXXA Exposure to other specified factors, initial encounter; Y93.9 Activity, unspecified; Y92.9 Unspecified place or not applicable; Y99.8 Other external cause status
CPT/HCPCS: 29828; C1713; J0131; J0171; J0665; J0690; J1100; J2250; J2405; J2704; J3010

== ENCOUNTER → 2024-06-28 08:13 | Outpatient (BNV) | payer BC, SELFPAY | PROVIDERS: PCP Internal Medicine; Visit Provider Orthopaedic Surgery | DX: M75.22 Bicipital tendinitis, left shoulder (principal) | CPT/HCPCS: 29828 ==

== ENCOUNTER 2024-07-06 11:50 | Outpatient (AMB) | payer BC, SELFPAY ==
--- NOTE | 2024-07-06 11:58 | MHC.OFFVIS ---
Intake Visit Reasons: PO LT shoulder /bicep/SLAP 06/28/24 NE Intake Note: Trung is a 49 year old right hand dominant male who presents today for a for a post op appointment s/p LT shoulder /bicep/SLAP 06/28/24 NE. Patient is doing well, having some mild pain. Allergies No Known Allergies Allergy (Verified 07/06/24 12:24) HPI HPI PO LT shoulder /bicep/SLAP 06/28/24 NE: Details: 49-year-old male who presents in the office today 8 days status post left shoulder arthroscopic labral debridement and sub pectoral biceps tenodesis, which was performed on 06/28/[address] Weaver.? 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 Sutures are intact. No surrounding erythema or drainage. No signs of infection. Forward flexion to 80 degrees. Abduction to 45 degrees. External rotation to neutral. NVI. Assessment & Plan Assessment & Plan (1) SLAP tear of shoulder: Code(s): S43.439A - Superior glenoid labrum lesion of unspecified shoulder, initial encounter Category: Medical Plan Mr. Bryan is a 49-year-old male who presents in the office today 8 days status post left shoulder arthroscopic labral debridement and sub pectoral biceps tenodesis, which was performed on 06/28/[address] Weaver.? ? Sutures were removed and steri-stripes were applied. The patient will remain in the sling for 6 weeks post-op. She was begin out patient PT as soon as possible. A referral was placed in the office today. A refill for oxycodone 5 mg PO Q4H PRN was sent to the pharmacy today. Follow-up will be in four weeks with Dr. Weaver, or sooner if needed. ? Orders: Orders PT Evaluation and Treatment Today M24.812 - Other specific joint derangements of left shoulder, not elsewhere classified, S43.439A - Superior glenoid labrum lesion of unspecified shoulder, initial encounter Medications: Refilled oxycodone Partial Fill upon patient request. 5 mg PO Q4H PRN 42 tabs 0RF pain 7 days Patient Instructions: Scribed by Tamia Barba medical office receptionist, for Luz Maciel PA-C on 07/06/2024 at 11:51 am, EST.? Coding Level of Care Code Global (52099) Diagnoses SLAP tear of shoulder S43.439A
== END 2024-07-06 12:25 | disposition home or self-care (01) ==
PROVIDERS: PCP Internal Medicine; Visit Provider Physician Assistant
DX: S43.439A Superior glenoid labrum lesion of unspecified shoulder, initial encounter (principal)
CPT/HCPCS: 99024

== ENCOUNTER → 2024-07-06 11:50 | Outpatient (BNVA) | payer BC, SELFPAY | PROVIDERS: PCP Internal Medicine; Visit Provider Physician Assistant ==

== ENCOUNTER 2024-08-03 10:25 | Outpatient (AMB) | payer BC, SELFPAY ==
[2024-08-03 10:27] VITALS: BMI 27.4
--- NOTE | 2024-08-03 10:27 | MHC.OFFVIS ---
Vital Signs 08/03/24 10:27 Height 5 ft 10 in Weight 191 lb BMI 27.4 Intake Visit Reasons: PO LT shoulder /bicep/SLAP 06/28/24 NE Intake Note: Trung is a 49 year old right hand dominant male who presents today for a for a post op appointment s/p LT shoulder /bicep/SLAP 06/28/24 NE Patient reports that the shoulder is still painful, he is not taking anything for his pain at this time. He is working with Physical therapy , he noticed a clicking starting again while doing pullies at PT. He currently remains out of work and will need an updated work note. Allergies No Known Allergies Allergy (Verified 07/06/24 12:24) HPI HPI PO LT shoulder /bicep/SLAP 06/28/24 NE: Details: Trung is a 49 year old right hand dominant male who presents today for a for a post op appointment s/p LT shoulder /bicep/SLAP 06/28/24 NE Patient reports that the shoulder is still painful, he is not taking anything for his pain at this time. He is working with Physical therapy , he noticed a clicking starting again while doing pullies at PT. He currently remains out of work and will need an updated work note. 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 He is doing physical therapy as per protocol. Follow up 6 weeks. Continue out of work status Coding Level of Care Code Global (91129) Diagnoses SLAP tear of shoulder S43.439A
== END 2024-08-03 10:44 | disposition home or self-care (01) ==
PROVIDERS: PCP Internal Medicine; Visit Provider Orthopaedic Surgery
DX: S43.439A Superior glenoid labrum lesion of unspecified shoulder, initial encounter (principal)
CPT/HCPCS: 99024

== ENCOUNTER → 2024-08-03 10:25 | Outpatient (BNVA) | payer BC, SELFPAY | PROVIDERS: PCP Internal Medicine; Visit Provider Orthopaedic Surgery ==

== ENCOUNTER 2024-09-11 12:52 | Outpatient (AMB) | payer BC, SELFPAY ==
--- NOTE | 2024-09-11 13:07 | MHC.OFFVIS ---
Vital Signs 09/11/24 13:09 Height 5 ft 10 in Weight 191 lb BMI 27.4 Intake Visit Reasons: PO LT shoulder /bicep/SLAP 06/28/24 NE Intake Note: Brent a 49 year old male who presents today for a post operative visit of left shoulder /bicep/SLAP, DOS: 06/28/24. Patient reports he is doing well, he has concerns of a painful clicking with ROM. He continues to attend with PT. Allergies No Known Allergies Allergy (Verified 09/11/24 13:11) HPI HPI PO LT shoulder /bicep/SLAP 06/28/24 NE: Details: 2-1/2 months status post left shoulder biceps tenodesis. He complains of painful popping but feels that the surgery was helpful. He is doing physical therapy. 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 Negative empty can. Well-healed incision. 5/5 biceps strength with resisted supination. Assessment & Plan Assessment & Plan (1) SLAP tear of shoulder: Code(s): S43.439A - Superior glenoid labrum lesion of unspecified shoulder, initial encounter Category: Medical Plan: Status post biceps tenodesis doing well but still not 100%. May return to work on 09/24/2024 with no overhead work and no lifting over 25 lb. Follow up in 6 weeks. Continue physical therapy. Coding Level of Care Code Global (10841) Diagnoses SLAP tear of shoulder S43.439A
[2024-09-11 13:09] VITALS: BMI 27.4
== END 2024-09-11 13:23 | disposition home or self-care (01) ==
PROVIDERS: PCP Internal Medicine; Visit Provider Orthopaedic Surgery
DX: S43.439A Superior glenoid labrum lesion of unspecified shoulder, initial encounter (principal)
CPT/HCPCS: 99024

== ENCOUNTER 2024-10-02 10:08 | Outpatient (RCR) | payer BC, SELFPAY ==
--- NOTE | 2024-07-20 10:57 | MHC.PT.EP ---
[facility] [place] Office [place] Office [place] Office [address] Randall Begum [address] [phone] F: [phone] F: [phone] F: [phone] F: [phone] Physical Therapy Plan of Care Date of Evaluation: 07/20/24 Date of Surgery: 06/28/24 Diagnosis: Arthroscopic labral debridement and sub-pectoral bicep tenodesis Assessment: Trung is a 49 year old male who is referred to PT for Arthroscopic labral debridement and sub-pectoral bicep tenodesis . He is currently 3 weeks post op. On PT examination he presented with 8/10 pain in L shoulder at rest, TTP along the scar in proximal arm region, decreased L shoulder ROM, decreased L shoulder and scap strength, and altered posture. He lives with family. He needs assistance for ADLS due to post restrictions. 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 He would benefit from skilled PT to address the aforementioned impairments and improve tolerance to functional activities. Frequency and Duration: The patient will be seen 2/week for 12 weeks Short Term Goals: 1. Pt will have 50% decrease in pain which will enable him to sleep through the night in 2 weeks. 2. Pt will have all shoulder ROM WFL which will enable him to move his L UE for dressing upper body without pain in 4 weeks. 3. Pt will demonstrate an increase in L shoulder muscle strength by 1 grade which will enable him to perform self care activities with pain no more than 2/10 in 6 weeks Assisted Goals: 1. Pt will demonstrate improvement in L bicep strength by 1 grade which will enable to him carry heavy weights with L UE in 9 weeks. 2. Pt will demonstrate improved L shoulder proprioception, stability and endurance which will enable him to use L UE for work activities - machinist mechanic with pain no more than 2/10 in 12 weeks 3. Pt will be independent with all HEP and return to PLOF in 12 weeks. Treatment Plan: Modalities to reduce pain, spasms and effusion. Manual therapy to restore motion and function. Therapeutic exercise to improve strength and flexibility. Neuromuscular re-education for posture and balance. Therapeutic activities to return to functional activities of daily living. Electronically signed by: Michelle Wood PT DPT Please sign and return to therapist. Thank you for your referral.
--- NOTE | 2024-11-07 14:12 | MHC.PT.DC ---
[facility] [place] Office [place] Office [place] Office [address] Randall Begum 140 [facility] [phone] F: [phone] F: [phone] F: [phone] F: [phone] Physical Therapy Discharge Report Diagnosis: Arthroscopic labral debridement and sub-pectoral bicep tenodesis Date of Surgery: 06/28/24 Date of Evaluation: 07/20/24 Date of Discharge: 11/07/24 Treatments to Date: 16 Cancellations to Date: 0 No Shows to Date: 0 Discharge Status: Achieved Goals Improved Function Independent with HEP Discharge Summary: Trung attended 16 PT visits and has achieved all goals set for him. He is independent with all HEP as well. He is therefore being d/c from PT. Electronically signed by: Michelle Wood, PT DPT Please sign and return to therapist. Thank you for your referral.
== END 2024-11-07 14:13 | disposition home or self-care (01) ==
LOC: HO.PT 10:08
PROVIDERS: PCP Internal Medicine; Visit Provider Physician Assistant
DX: S43.432D Superior glenoid labrum lesion of left shoulder, subsequent encounter (principal); M24.812 Other specific joint derangements of left shoulder, not elsewhere classified
CPT/HCPCS: 97110; 97140; 97161; 97530

== ENCOUNTER 2024-10-30 10:29 | Outpatient (AMB) | payer BC, SELFPAY ==
--- NOTE | 2024-10-30 11:06 | A.OFFVIS_ITS ---
Intake Visit Reasons: OV-LT shoulder /bicep/SLAP-6 WK follow up Intake Note: Trung is a 49 year old right hand dominant male who presents today for a follow up of his right shoulder. S/p Left Shoulder Arthroscopy (labral debridement and sub pectoral biceps tenodesis) 06/28/2024. He was released to return to work on 09/24/2024 with no lifting over 25 lbs and no overhead work. Patient reports that he has remained about the same, has not made any improvements recently Allergies No Known Allergies Allergy (Verified 09/11/24 13:11) HPI HPI OV-LT shoulder /bicep/SLAP-6 WK follow up: Details: Trung is a 49 year old right hand dominant male who presents today for a follow up of his right shoulder. S/p Left Shoulder Arthroscopy (labral debridement and sub pectoral biceps tenodesis) 06/28/2024. He was released to return to work on 09/24/2024 with no lifting over 25 lbs and no overhead work. Patient reports that he has remained about the same, has not made any improvements recently [facility] Medical History Breathing difficulty Heartburn Sleep apnea Psoriasis Surgical History History of arthroscopy of left shoulder (11/16/22) Hx of inguinal hernia repair Hx of umbilical hernia repair History of hernia repair Social History Household Members: Spouse Housing: House Are you a primary adult care provider to a significant other at home: No Do you presently have visiting nurse or other home services: No Patient Tobacco Use Status: Never used Tobacco Current occupational status: employed 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 No visible deformity. No pain with resisted supination. Assessment & Plan Assessment & Plan (1) History of arthroscopy of left shoulder: Onset Date: 11/16/22 Comment: 2022-W/ Biceps Tenotomy-Dr. Weaver Code(s): Z98.890 - Other specified postprocedural states Category: Surgical Plan: Doing well. Persistent pain in the triceps. May be amenable to some pain management interventions. Referral was made. (2) Musculoskeletal disorder involving upper trapezius muscle: Code(s): M62.9 - Disorder of muscle, unspecified Category: Medical Plan: Referral to pain management Orders: Referrals Pain Management Referral M62.9 - Disorder of muscle, unspecified, Z98.890 - Other specified postprocedural states Coding Level of Care Code Est Pt Level 3 (84351) Diagnoses History of arthroscopy of left shoulder Z98.890 Musculoskeletal disorder involving upper trapezius muscle M62.9
--- OUTSIDE RECORDS SUMMARY | 2024-10-30 11:30 | XMS_ITS ---
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 Hand Name Role Phone John Ahmadi MD Primary Care Provider [phone] [facility] Unavailable [phone] Plan of Treatment No Plan of Treatment Recorded Assessments Includes: Assessments for all patient encounters No Assessments Recorded Medical Equipment - Implanted Devices Includes: Current and historical Devices No Medical Equipment Recorded Medications Includes: Current and historical Medications Current Medications (continue as prescribed) oxyCODONE HCl 5 MG Oral Tablet 11/05/2022 Provider: Diagnosis: Last Documented On 3 8:31AM By Sukhdev Meehan ; [facility] Medications Administered Includes: Administered Medications in patient's chart No Administered Medications Recorded Results Includes: Results from 10/30/2023 through 10/30/2024 No Results Recorded For Specified Dates History of Present Illness History of Present Illness not supported for this document type No History of Present Illness Recorded Social History No Social History Recorded - Smoking Status Unknown Medical History Includes: Medical History in patient's chart No Medical History Recorded Family History Includes: Family History in patient's chart No Family History Recorded Review of Systems Review of Systems not supported for this document type No Review of Systems Recorded Mental Status No Mental Status Recorded Functional Status No Functional Status Recorded Physical Exam Physical Exam not supported for this document type No Physical Exam Recorded Insurance Includes: Active Insurance Policies Plan Name Member ID Group # Subscriber Relationship Effect arlene Dates 1 - [id number] TASHI Christopher [address] [place] [address] [id number] TASHI Christopher Clinical Notes Includes: Signed Clinical Notes starting from 10/04/2022 No Clinical Notes Recorded
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
--- OUTSIDE RECORDS SUMMARY | 2024-10-30 11:31 | XMS_ITS ---
Care Plan - [facility] Created on: October 30, 2024 TASHI FELIX : [id number] Sex: Male Author Organization [facility] Address [address] [place] [address] Phone Care Team Providers Care Continuous Miner Operator Name Role Phone John Ahmadi MD Primary Care Provider [phone] [facility] Unavailable [phone]
== END 2024-10-30 13:01 | disposition home or self-care (01) ==
PROVIDERS: PCP Internal Medicine; Visit Provider Orthopaedic Surgery
DX: Z47.89 Encounter for other orthopedic aftercare (principal); M75.22 Bicipital tendinitis, left shoulder
CPT/HCPCS: 99213

== ENCOUNTER 2024-11-08 09:25 | Outpatient (AMB) | payer BC, SELFPAY ==
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
[2024-11-08 09:33] VITALS: BP 144/85; PULSE 73; O2SAT 98; BMI 28.0
--- OUTSIDE RECORDS SUMMARY | 2024-11-08 09:56 | XMS_ITS ---
Care Plan - [facility] Created on: November 08, 2024 TASHI FELIX : 1975 Sex: Male Author Organization [facility] Address [address] [place] [address] Phone Care Team Providers Care Joggle Press Operator Name Role Phone John Ahmadi MD Primary Care Provider [phone] [facility] Unavailable [phone]
--- OUTSIDE RECORDS SUMMARY | 2024-11-08 09:56 | XMS_ITS | Clinical Summary ---
Author Organization [facility] Address [address] [place] [address] Phone Care Team Providers Care Ap Operator Name Role Phone John Ahmadi MD Primary Care Provider [phone] [facility] Unavailable [phone] Reason for Visit and Chief Complaint Established Patient Plan of Treatment Referred to shoulder subspecialist Dr. Jc - Last Documented On 01/21/2023 12:02PM ; [facility] Pending Tests Order Diagnosis Results Due Ordering P timmy Follow Up - Appointment PRN Strain o f musc/fasc/tend at shldr/up arm, left arm, init 01/21/23 Gaurav Sabillon MD Last Documented On 3 12:02PM ; [facility] Assessments Includes: Assessments from this encounter No Assessments Recorded Medical Equipment - Implanted Devices Includes: Current Devices No Medical Equipment Recorded Medications Includes: Medications discussed during this encounter and other current Medications Current Medications (continue as prescribed) oxyCODONE HCl 5 MG Oral Tablet 11/05/2022 Provider: Diagnosis: Last Documented On 3 8:31AM By Sukhdev Meehan ; [facility] Medications Administered Includes: Administered Medications from this encounter No Administered Medications Recorded Vital Signs Includes: Vital Signs from this encounter Vital Name 01/21/2023 10:00A Blood Pressure Sitting (mmHg) 144/94 Pulse Rate-Sitting (bpm) 78 Temp-Temporal 78 Height (in) 70 Weight (lb) 192 Body Mass Index 27.5 Body Surface Area 2.1 Oxygen Saturation (%) 96 Last Documented: On 01/21/2023 10:00A M ; [facility] Results Includes: Results discussed during this [...] Time Diagnosis Established Patient Gaurav Sabillon MD [facility] 01/22/20 10:00AM 10:36AM Insurance Includes: Active Insurance Policies Plan Name Member ID Group # Subscriber Relationship Effect arlene [facility] 1 - [facility] [id number] TASHI Christopher [address] [place] [address] [id number] TASHI Christopher Clinical Notes Includes: Clinical Notes from this encounter * Progress note Date Encounter Last Documented by 01/21/2023 Established Patient Conor padilla on 01/21/2023; 12:02 PM, Gaurav Sabillon MD; [facility] Chief Complaint Left shoulder pain History [...]
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
== END 2024-11-08 09:50 | disposition home or self-care (01) ==
PROVIDERS: PCP Internal Medicine; Referring Provider Orthopaedic Surgery; Visit Provider Anesthesiology
DX: M62.9 Disorder of muscle, unspecified (principal); S43.439A Superior glenoid labrum lesion of unspecified shoulder, initial encounter; M24.812 Other specific joint derangements of left shoulder, not elsewhere classified; M19.019 Primary osteoarthritis, unspecified shoulder; M47.812 Spondylosis without myelopathy or radiculopathy, cervical region; G89.4 Chronic pain syndrome; S43.432A Superior glenoid labrum lesion of left shoulder, initial encounter; Z98.890 Other specified postprocedural states; M25.512 Pain in left shoulder
CPT/HCPCS: 99204

== ENCOUNTER → 2024-11-08 09:25 | Outpatient (BNVA) | payer BC, SELFPAY | PROVIDERS: PCP Internal Medicine; Referring Provider Orthopaedic Surgery; Visit Provider Anesthesiology ==

== ENCOUNTER 2025-01-09 06:29 | Outpatient (REF) | payer BC, SELFPAY | END 2025-01-09 06:30 | disposition home or self-care (01) | LOC: CF 06:29 | PROVIDERS: Visit Provider Anesthesiology | DX: Z13.89 Encounter for screening for other disorder (principal) ==